=== PATIENT | female | born 1995 | race Caucasian/White ===

== ENCOUNTER 2019-04-03 23:16 | Inpatient (IN) | payer BC ==
[2019-04-04] MEDS ORDERED: Lidocaine 1% (PF) 30 ML VIAL SC PRN (00:03)
[2019-04-04] MEDS ORDERED: Butorphanol Tartrate 1 MG/ML VIAL SLOW IVP PRN (00:03)
[2019-04-04] MEDS ORDERED: HYDROcodone/Acetaminophen 5/325 mg Tablet PO PRN ×2 (00:03)
[2019-04-04] MEDS ORDERED: NS / Oxytocin 40 units/1000ml 1,000 ML IV PRN (00:03)
[2019-04-04] MEDS ORDERED: Ondansetron PF 4 MG/2 ML Vial IVP PRN ×3 (00:03→12:18)
[2019-04-04] MEDS ORDERED: Ibuprofen 800 MG TAB PO PRN (00:03)
[2019-04-04] MEDS ORDERED: Promethazine HCl 25 MG/ML VIAL IM PRN ×2 (00:03→03:32)
--- NOTE | 2019-04-04 00:07 | PDOC.LDHP ---
Labor and Delivery H&P HPI: Patient of Dr Ibarra EGA: 38 weeks CC: CTX 23 yo G1 at early term with CTX. No VB, no gush of fluid, good FM. CTX every 3- 5 min Review of Systems: complete ROS completed and as per HPI Current gestational age (weeks): 38 Due date: 04/17/19 Dating criteria: last menstrual period Grav: 1 Current complications: none Abnormal US findings: No Past Medical History: none Current medications: none Previous surgical history: none Allergies/Adverse Reactions: Allergies Allergy/AdvReac Type Severity Reaction Status Date / Time No Known Allergies Allergy Unverified 04/03/19 23:46 - Physical Exam Vital signs reviewed and normal: yes General: NAD Heart: RRR Lungs: CTAB Abdomen: gravid Extremeties: no edema [place] contractions every: 3-5 min - Vaginal Exam cm dilated: 3 Effacement: 75% Station: 1+ - OB Labs GBS: positive - Assessment L&D Assessment: term patient in labor (Early term; GBS pos) - Plan Plan: admit to L&D, GBS antibiotic prophylaxis, anesthesia consult for pain management, other (Direct admission for Dr Ibarra)
[2019-04-04 00:08] VITALS: BMI 31.4
[2019-04-04] MEDS ORDERED: Penicillin G Potassium 5 MILL.UNITS in Sodium Chloride 0.9% 100 ML IVPB SCH (00:15)
[2019-04-04] MEDS: Lactated Ringer's 1,000 ML IV SCH ×2 (00:58→09:04)
[2019-04-04 01:05] LABS: Hemoglobin 13.5 g/dL (12.0-16.0); Mean Corpuscular HGB CONC 34.5 g/dL (32.0-36.0); Mean Corpuscular Hemoglobin 32.8 pg (27.0-31.0); Mean Corpuscular Volume 95.1 fL (78.0-98.0); Platelet Count 281 thou/uL (130-400); Red Blood Cell (RBC) Count 4.12 mill/uL (4.20-5.40); White Blood Cell (WBC) Count 21.5 thou/uL (4.8-10.8)
[2019-04-04 01:38] LABS: HBSAg Index 0.34 S/CO (0-0.99); HIV (1/2) Antibody/Antigen Non-Reactive (NonReactive); HIV 1/2 INDEX 0.26 S/CO (<1.00); Hep B Surf Ag Non-Reactive S/CO (NonReactive)
[2019-04-04] MEDS ORDERED: Fentanyl 4 mcg/Bup 0.1% Cadd 100 ML ONE (01:56)
[2019-04-04] MEDS ORDERED: Lidocaine 1.5%/Epinephrine 1:200,000 5 ML AMPUL IJ ONE (01:57)
[2019-04-04] MEDS ORDERED: Acetaminophen 325 MG TAB PO PRN (03:32)
[2019-04-04] MEDS ORDERED: Lactated Ringer's 500 ML IV PRN (03:32)
[2019-04-04] MEDS ORDERED: ePHEDrine/0.9% NaCl/PF SYRINGE 50 mg/10 ml SLOW IVP PRN (03:32)
[2019-04-04] MEDS ORDERED: diphenhydrAMINE 50 MG/ML VIAL IVP PRN (03:32)
[2019-04-04] MEDS ORDERED: Naloxone HCl 0.4 mg/ml Vial IVP PRN ×2 (03:32)
[2019-04-04] MEDS ORDERED: Fentanyl 4 mcg/Bupivacaine 0.1% Cassette 100 ML EPIDURAL SCH (03:45)
[2019-04-04] MEDS ORDERED: Communication Order-Pharmacy FS SCH (03:45)
[2019-04-04 04:20] LABS: Syphilis Antibody Nonreactive (Nonreactive); Syphilis Antibody Index 0.05 S/CO (<1.00 Non-Reactive)
[2019-04-04] MEDS: Penicillin G 2.5 MILL.units 2.5 MILL.UNITS in Premix Bag 1 BAG IVPB SCH ×4 (05:09→15:52)
[2019-04-04] MEDS ORDERED: NS w/ Oxytocin 10 units 0 ML ONE (07:21)
[2019-04-04] MEDS ORDERED: NS w/ Oxytocin 10 units 500 ML ONE ×3 (07:21→07:26)
[2019-04-04] MEDS ORDERED: Bupivacaine/Epinephrine 0.25% 30 ML VIAL ONE (10:00)
[2019-04-04] MEDS ORDERED: Lanolin Ointment 7 GM TUBE TOP PRN (12:18)
[2019-04-04] MEDS ORDERED: Milk Of Magnesia 30 ML UDCUP PO PRN (12:18)
[2019-04-04] MEDS ORDERED: Misoprostol 200 MCG TAB VAG PRN (12:18)
[2019-04-04] MEDS ORDERED: Bisacodyl 10 MG SUPP PR PRN (12:18)
[2019-04-04] MEDS ORDERED: Adacel (T-DAP) 0.5 ML SYRINGE IM ONE (12:18)
[2019-04-04] MEDS ORDERED: Benzocaine-Menthol 82.5 ML CAN TOP PRN (12:18)
[2019-04-04] MEDS ORDERED: Preparation H Ointment 28 GM TUBE PR PRN (12:18)
[2019-04-04] MEDS ORDERED: Zolpidem Tartrate 5 MG TAB PO PRN (12:18)
[2019-04-04] MEDS ORDERED: diphenhydrAMINE 25 MG CAP PO PRN (12:30)
[2019-04-04] MEDS ORDERED: NS / Oxytocin 40 units/1000ml 1,000 ML IV SCH (12:30)
[2019-04-04] MEDS: Acetaminophen/Codeine 30-300mg Tablet PO SCH ×5 (15:44→19:51)
[2019-04-04] MEDS: Ibuprofen 800 MG TAB PO SCH ×2 (16:14→23:20)
[2019-04-04] MEDS: Ferrous Sulfate 325 MG TAB PO SCH (16:29)
[2019-04-04] MEDS: Docusate Calcium (SURFAK) 240 MG CAP PO SCH (19:51)
[2019-04-05] MEDS: Acetaminophen/Codeine 30-300mg Tablet PO SCH ×12 (03:46→22:37)
[2019-04-05] MEDS: Ibuprofen 800 MG TAB PO SCH ×3 (05:57→21:28)
[2019-04-05 06:17] LABS: Hemoglobin 12.4 g/dL (12.0-16.0); Mean Corpuscular HGB CONC 31.8 g/dL (32.0-36.0); Mean Corpuscular Hemoglobin 30.8 pg (27.0-31.0); Mean Corpuscular Volume 96.8 fL (78.0-98.0); Mean Platelet Volume 6.1 fL (7.4-10.4); Platelet Count 295 thou/uL (130-400); RBC Distribution Width 12.2 % (11.5-14.5); Red Blood Cell (RBC) Count 4.02 mill/uL (4.20-5.40); White Blood Cell (WBC) Count 16.8 thou/uL (4.8-10.8)
[2019-04-05] MEDS: Docusate Calcium (SURFAK) 240 MG CAP PO SCH ×2 (07:59→20:29)
[2019-04-05] MEDS: Prenatal Vitamin 1 TAB PO SCH (07:59)
[2019-04-05] MEDS: Ferrous Sulfate 325 MG TAB PO SCH ×2 (08:00→17:15)
[2019-04-06] MEDS: Acetaminophen/Codeine 30-300mg Tablet PO SCH ×7 (05:38→14:05)
[2019-04-06] MEDS: Ibuprofen 800 MG TAB PO SCH ×2 (05:39→14:04)
[2019-04-06 07:51] VITALS: BP 128/77; TEMP 97.7
[2019-04-06] MEDS: Ferrous Sulfate 325 MG TAB PO SCH (09:20)
[2019-04-06] MEDS: Prenatal Vitamin 1 TAB PO SCH (09:21)
[2019-04-06] MEDS: Docusate Calcium (SURFAK) 240 MG CAP PO SCH (09:21)
== END 2019-04-06 14:20 | disposition home or self-care (01) | DRG 807 ==
LOC: L&D/OP 23:16 → L&D 04-04 00:10 → 3SW 04-04 15:14
PROVIDERS: ADMIT Obstetrics & Gynecology; ATTEND Obstetrics & Gynecology
PROC: 10E0XZZ Delivery of Products of Conception, External Approach (ICD-10-PCS; principal; 2019-04-04)
PROC: 0HQ9XZZ Repair Perineum Skin, External Approach (ICD-10-PCS; 2019-04-04)
DX: O99.824 Streptococcus B carrier state complicating childbirth (principal); Z37.0 Single live birth; O70.0 First degree perineal laceration during delivery; Z3A.38 38 weeks gestation of pregnancy
CPT/HCPCS: 36415; 51702; 85027; 85461; 86780; 86850; 86870; 86900; 86901; 87340; 87389; 90384; 96372; 99285; J2001; J2540; J2590; J3490; Q0163